=== PATIENT | male | born 1975 | race Caucasian/White ===

== ENCOUNTER 2021-08-10 20:07 | Emergency (ER) | payer BC, OTHER ==
[2021-08-10] MEDS ORDERED: Morphine 4 MG/ML VIAL ONE (20:53)
[2021-08-10] MEDS ORDERED: Orphenadrine Citrate 60 MG/2 ML VIAL ONE (22:11)
== END 2021-08-10 22:10 | disposition home or self-care (01) ==
LOC: MADERS 20:07
DX: M54.50 Low back pain, unspecified (principal); R20.2 Paresthesia of skin; F17.210 Nicotine dependence, cigarettes, uncomplicated
CPT/HCPCS: 72131; 96372; J2270; J2360

== ENCOUNTER 2021-11-23 19:44 | Emergency (ER) | payer BC, OTHER ==
[2021-11-23] MEDS ORDERED: Famotidine/PF 20 mg/2ml Vial ONE (20:15)
[2021-11-23] MEDS ORDERED: methylPREDNISolone Sod Succ/PF 125 MG/2 ML VIAL ONE (20:15)
[2021-11-23] MEDS ORDERED: Ondansetron PF 4 MG/2 ML Vial ONE (20:24)
[2021-11-23 20:51] LABS: ALT (SGPT) 31 U/L (8-55); AST (SGOT) 20 U/L (5-34); Albumin 4.3 g/dL (3.5-5.0); Alkaline Phosphatase 65 U/L (40-110); Anion Gap 16 mmol/L (10-20); BUN (Urea Nitrogen) 18 mg/dL (8.9-20.6); Bilirubin, Total 0.4 mg/dL (0.2-1.2); Calc. Creatinine Clearance 0 mL/min (70-130); Calcium 9.2 mg/dL (7.8-10.44); Carbon Dioxide 23 mmol/L (22-29); Chloride 109 mmol/L (98-107); Estimated GFR 81; Globulin 2.6 g/dL (2.4-3.5); Glucose 112 mg/dL (70-105); Protein, Total 6.9 g/dL (6.0-8.3); Sodium 144 mmol/L (136-145)
[2021-11-23 20:53] LABS: Band 5 % (5-11); Eosinophils 1 % (0-10); Hemoglobin 16.4 g/dL (14.0-18.0); Lymphocytes 42 % (21-51); MDiff Complete? YES; Mean Corpuscular HGB CONC 34.7 g/dL (32.0-36.0); Mean Corpuscular Hemoglobin 31.4 pg (27.0-31.0); Mean Corpuscular Volume 90.4 fL (78.0-98.0); Mean Platelet Volume 8.9 fL (7.4-10.4); Monocytes 14 % (0-10); Neutrophil 35 % (42-75); Platelet Count 128 thou/uL (130-400); RBC Distribution Width 12.2 % (11.5-14.5); RBC Morphology Normal; Reactive Lymphocytes 2 % (0-10); Red Blood Cell (RBC) Count 5.22 mill/uL (4.70-6.10); White Blood Cell (WBC) Count 7.3 thou/uL (4.8-10.8)
== END 2021-11-23 21:48 | disposition home or self-care (01) ==
LOC: MADERS 19:44
DX: L50.0 Allergic urticaria (principal); J44.9 Chronic obstructive pulmonary disease, unspecified; F17.210 Nicotine dependence, cigarettes, uncomplicated
CPT/HCPCS: 80053; 85025; 96374; 96375; J2405; J2930; S0028

== ENCOUNTER 2021-11-25 08:57 | Emergency (ER) | payer BC, OTHER ==
[2021-11-25] MEDS ORDERED: methylPREDNISolone Sod Succ/PF 125 MG/2 ML VIAL ONE (09:10)
[2021-11-25] MEDS ORDERED: Iopamidol 370 76% 100 ML VIAL ONE (09:16)
[2021-11-25] MEDS ORDERED: Sodium Chloride 0.9% 1,000 ML ONE ×2 (09:22→11:13)
[2021-11-25] MEDS ORDERED: Aspirin Chewable 81 MG TAB ONE (09:22)
[2021-11-25 09:38] LABS: Base Excess-Venous 0.3 mmol/L (-2.0 to 3.0); Bicarbonate (HCO3v) 23.9 mmol/L (22.0-28.0); CO2 Tension (PvCO2) 35.4 mmHg (42.0-51.0); Calcium, Ionized 0.99 mmol/L (1.15-1.33); Chloride 107 mmol/L (98-107); Hemoglobin - Calc 16.9 g/dL (14.0-18.0); Potassium 3.5 mmol/L (3.5-5.1); Sodium 143 mmol/L (138-145)
[2021-11-25] MEDS ORDERED: Nitroglycerin 0.4 MG TAB 1 EACH ONE ×2 (09:38→10:16)
[2021-11-25 09:46] LABS: ALT (SGPT) 39 U/L (8-55); AST (SGOT) 23 U/L (5-34); Albumin 4.3 g/dL (3.5-5.0); Alkaline Phosphatase 63 U/L (40-110); Anion Gap 16 mmol/L (10-20); BUN (Urea Nitrogen) 19 mg/dL (8.9-20.6); Bilirubin, Total 0.3 mg/dL (0.2-1.2); Calc. Creatinine Clearance 0 mL/min (70-130); Calcium 8.4 mg/dL (7.8-10.44); Chloride 107 mmol/L (98-107); Estimated GFR 91; Globulin 2.5 g/dL (2.4-3.5); Glucose 92 mg/dL (70-105); Magnesium 1.8 mg/dL (1.6-2.6); Potassium 3.7 mmol/L (3.5-5.1); Protein, Total 6.8 g/dL (6.0-8.3); Sodium 142 mmol/L (136-145)
[2021-11-25 09:58] LABS: Acetaminophen Less than 10.0 mcg/mL (10.0-30.0); Alcohol Less than 10 mg/dL (Less than 10); Salicylate Less than 8.0 mg/dL (15.0-30.0)
[2021-11-25 10:04] LABS: Carbon Dioxide 23 mmol/L (22-29)
[2021-11-25] MEDS ORDERED: Ondansetron PF 4 MG/2 ML Vial ONE (10:09)
[2021-11-25 10:33] LABS: Band 4 % (5-11); Eosinophils 1 % (0-10); Hemoglobin 15.1 g/dL (14.0-18.0); Lymphocytes 28 % (21-51); MDiff Complete? YES; Mean Corpuscular Hemoglobin 31.5 pg (27.0-31.0); Mean Corpuscular Volume 92.6 fL (78.0-98.0); Mean Platelet Volume 9.3 fL (7.4-10.4); Monocytes 10 % (0-10); Neutrophil 54 % (42-75); Platelet Count 110 thou/uL (130-400); Platelet Morphology Comment Appears Decreased; RBC Distribution Width 12.7 % (11.5-14.5); RBC Morphology Normal; Reactive Lymphocytes 3 % (0-10); Small Platelets SLIGHT
[2021-11-25] MEDS ORDERED: Albuterol Sulfate 2.5 mg/0.5 ml Neb ONE (10:57)
[2021-11-25] MEDS ORDERED: ALPRAZolam 0.5 MG TAB ONE (10:57)
[2021-11-25 11:34] LABS: Amphetamine Not Detected (NotDetected); Barbiturates Screen Not Detected (NotDetected); Benzodiazepine Screen Not Detected (NotDetected); Cocaine Metabolite Screen Not Detected (NotDetected); Medtox Control Line Valid? VALID (VALID); Methadone Not Detected (NotDetected); Methamphetamine Not Detected (NotDetected); Opiate Screen Not Detected (NotDetected); Oxycodone Screen Not Detected (NotDetected); Phencyclidine (PCP) Not Detected (NotDetected); THC/Cannabinoid Screen Not Detected (NotDetected); Tricyclic Screen Not Detected (NotDetected)
[2021-11-25 12:35] LABS: Troponin I Less than 0.010 ng/mL (< 0.028)
[2021-11-25] MEDS ORDERED: Ipratropium Bromide 2.5 ml Neb ONE (16:31)
== END 2021-11-25 16:57 ==
LOC: MADERS 08:57
DX: J44.1 Chronic obstructive pulmonary disease with (acute) exacerbation (principal); R06.03 Acute respiratory distress; F17.210 Nicotine dependence, cigarettes, uncomplicated
CPT/HCPCS: 71045; 71275; 80053; 80306; 80307; 82330; 82435; 82803; 83605; 83735; 83880; 84132; 84295; 84484; 85014; 85025; 85379; 93005; 96361; 96374; 96375; J2405; J2930; J7050; J7611; J7620; Q9967

== ENCOUNTER 2022-03-12 21:38 | Emergency (ER) | payer BC ==
[2022-03-12] MEDS ORDERED: Sodium Chloride 0.9% 100 ML ONE (23:07)
[2022-03-12] MEDS ORDERED: Cefepime 2 GM VIAL ONE (23:07)
[2022-03-12] MEDS ORDERED: Sodium Chloride 0.9% 250 ML 250 ML ONE (23:07)
[2022-03-12 23:09] LABS: #Lymphocytes 0.3 thou/uL (1.20-3.40); #Monocytes 0.3 thou/uL (0.11-0.59); #Neutrophils 15.2 thou/uL (1.40-6.50); %Lymphocytes 1.7 % (21.0-51.0); %Monocytes 1.9 % (0.0-10.0); %Neutrophils 96.3 % (42.0-75.0); Anisocytosis SLIGHT = 6-15 cells (100X) (0-5/hpf); Hemoglobin 10.6 g/dL (14.0-18.0); MDiff Complete? YES; Mean Corpuscular HGB CONC 34.9 g/dL (32.0-36.0); Mean Corpuscular Hemoglobin 36.5 pg (27.0-31.0); Mean Corpuscular Volume 104.4 fl (78.0-98.0); Mean Platelet Volume 6.5 fL (7.4-10.4); Platelet Count 143 10x3/uL (130-400); Platelet Morphology Comment Appears Adequate; RBC Distribution Width 20.5 % (11.5-14.5); Red Blood Cell (RBC) Count 2.91 mill/uL (4.70-6.10); White Blood Cell (WBC) Count 15.8 10x3/uL (4.8-10.8)
[2022-03-12 23:11] LABS: Base Excess-Venous -0.8 mmol/L (-2.0 to 3.0); Bicarbonate (HCO3v) 22.7 mmol/L (22.0-28.0); CO2 Tension (PvCO2) 32.6 mmHg (42.0-51.0); Calcium, Ionized 1.12 mmol/L (1.15-1.33); Chloride 104 mmol/L (98-107); Hemoglobin - Calc 11.2 g/dL (14.0-18.0); Potassium 3.7 mmol/L (3.5-5.1); Sodium 140 mmol/L (138-145); T. Carbon Dioxide 23.7 mmol/L (22.0-28.0); vO2 Saturation-calc 98.5 % (60.0-85.0)
[2022-03-12 23:15] LABS: ALT (SGPT) 20 U/L (8-55); AST (SGOT) 18 U/L (5-34); Albumin 3.7 g/dL (3.5-5.0); Alkaline Phosphatase 171 U/L (40-110); Anion Gap 12 mmol/L (10-20); BUN (Urea Nitrogen) 14 mg/dL (8.9-20.6); Bilirubin, Total 0.3 mg/dL (0.2-1.2); Calc. Creatinine Clearance 0 mL/min (70-130); Calcium 8.8 mg/dL (7.8-10.44); Carbon Dioxide 22 mmol/L (22-29); Chloride 105 mmol/L (98-107); Estimated GFR 99; Globulin 2.8 g/dL (2.4-3.5); Glucose 169 mg/dL (70-105); Magnesium 1.6 mg/dL (1.6-2.6); Potassium 3.7 mmol/L (3.5-5.1); Protein, Total 6.5 g/dL (6.0-8.3); Sodium 135 mmol/L (136-145)
[2022-03-12 23:47] LABS: SARS-CoV-2 NAA Rapid Test Not Detected (NotDetected)
[2022-03-13] MEDS ORDERED: Sodium Chloride 0.9% 500 ML ONE (01:00)
[2022-03-13] MEDS ORDERED: Sodium Chloride 0.9% 1,000 ML ONE (01:00)
[2022-03-13 01:08] LABS: Bilirubin Negative (Negative); Blood, Urine Negative (Negative); Clarity Clear (Clear); Glucose, Urine (Dipstick) Negative (Negative); Ketone, Urine Negative (Negative); Leukocyte Negative (Negative); Nitrite Negative (Negative); Protein, Urine (Dipstick) Negative (Neg-Trace); Urobilinogen 0.2 mg/dL (Less than 2)
[2022-03-13 01:09] LABS: Specific Gravity, Urine 1.005 (1.002-1.036)
[2022-03-13 05:46] LABS: Lactic Acid 2.1 mmol/L (0.5-2.2)
== END 2022-03-13 01:47 | disposition short-term general hospital (02) ==
LOC: MADERS 21:38
DX: A41.9 Sepsis, unspecified organism (principal); Z20.822 Contact with and (suspected) exposure to COVID-19; F17.210 Nicotine dependence, cigarettes, uncomplicated; J44.9 Chronic obstructive pulmonary disease, unspecified; Z79.899 Other long term (current) drug therapy
CPT/HCPCS: 36415; 71045; 80053; 81003; 82330; 82803; 83605; 83735; 83880; 84484; 85025; 87040; 87086; 93005; 96365; 96367; J0692; J3370; J3490; J7030; J7050